=== PATIENT | male | born 1975 | race Caucasian/White ===

== ENCOUNTER 2017-07-19 10:39 | Emergency (ER) | payer BC ==
[~2017-07-19] VITALS: Ht 185.4 cm; Wt 105.0 kg
[2017-07-19 10:40] VITALS: BP 174/106; PULSE 65; RESP 18; TEMP 97.6; O2SAT 100
[2017-07-19] MEDS ORDERED: ONDANSETRON HCL 4 MG/2 ML VIAL IV PUSH ONE (12:00)
[2017-07-19] MEDS ORDERED: SODIUM CHLOR 0.9% 1000 ML INJ 1,000 ML IV ONE (12:00)
--- NOTE | 2017-07-19 12:03 | PD ---
HPI Chief Complaint: GI Complaint Time Seen by Provider: 11:59 Travel History International Travel<30 days: No Contact w/Intl Traveler<30days: No Traveled to known affect area: No History of Present Illness HPI 41 YO M presents to the ED for evaluation of 1 week history of generalized abdominal pain, nausea, vomiting, loose stools, low urine output. Onset gradual. Patient denies associated fever or chills. He thinks he may have had a single episode of streaky hematemesis. He denies melena, hematochezia, penile discharge. Denies recent antibiotic use. He states that his last panendoscopy was 1-1/2 years ago in [place]. He states that he has had "a lot of GI issues, including ulcers." He endorses history of kidney stones. He states that this pain is different than those episodes. The patient is here working. He denies drinking alcohol. Endorses smoking marijuana. He treated at home with pantoprazole with no improvement of his symptoms. PFSH Social History Tobacco Use: Yes Allergies-Medications (Allergen,Severity, Reaction): Coded Allergies: No Known Allergies (Unverified , 07/19/17) Reported Meds & Prescriptions Reported Meds & Active Scripts Active Promethazine (Promethazine HCl) 12.5 Mg Tab 12.5 Mg PO Q6H PRN Reported Effexor (Venlafaxine HCl) 75 Mg Tab 150 Mg PO DAILY Metformin (Metformin HCl) 500 Mg Tab 500 Mg PO BIDPC Review of Systems Except as stated in HPI: all other systems reviewed are Neg Physical Exam Narrative GENERAL: Well-nourished, well-developed breathless white male in no acute distress.. SKIN: Focused skin assessment warm/dry. HEAD: Normocephalic. EYES: No scleral icterus. No injection or drainage. NECK: Supple, trachea midline. No JVD or lymphadenopathy. CARDIOVASCULAR: Regular rate and rhythm without murmurs, gallops, or rubs. RESPIRATORY: Breath sounds layer and equal bilaterally. No accessory muscle use. GASTROINTESTINAL: Abdomen soft, non-tender, nondistended. Hypoactive bowel sounds. RECTAL EXAM: No masses or tenderness, stool is brown. Guaiac negative MUSCULOSKELETAL: No cyanosis, or edema. BACK: Nontender without obvious deformity. + Right-sided CVA tenderness. Data Data Last Documented VS Vital Signs Date Time Temp Pulse Resp B/P (MAP) Pulse Ox O2 Delivery O2 Flow Rate FiO2 07/19/17 13:25 98.0 64 17 108/59 (75) 98 Room Air Orders Orders Iv Access Insert/Monitor (07/19/17 11:59) Ondansetron Inj (Zofran Inj) (07/19/17 12:00) Sodium Chlor 0.9% 1000 Ml Inj (Ns 1000 M (07/19/17 12:00) Complete Blood Count With Diff (07/19/17 12:25) Comprehensive Metabolic Panel (07/19/17 12:25) Lipase (07/19/17 12:25) Lactic Acid (07/19/17 12:25) Prothrombin Time / Inr (Pt) (07/19/17 12:25) Act Partial Throm Time (Ptt) (07/19/17 12:25) Urinalysis - C+S If Indicated (07/19/17 12:25) Ct Abd/Pel W Iv Contrast(Rout) (07/19/17 12:25) Ecg Monitoring (07/19/17 12:25) Oximetry (07/19/17 12:25) Morphine Inj (Morphine Inj) (07/19/17 12:30) Sodium Chloride 0.9% Flush (Ns Flush) (07/19/17 12:30) Iohexol 350 Inj (Omnipaque 350 Inj) (07/19/17 12:53) Ed Discharge Order (07/19/17 14:22) Labs Laboratory Tests Test 07/19/17 12:30 07/19/17 13:25 White Blood Count 16.7 TH/MM3 Red Blood Count 5.45 MIL/MM3 Hemoglobin 15.5 GM/DL Hematocrit 47.1 % Mean Corpuscular Volume 86.4 FL Mean Corpuscular Hemoglobin 28.4 PG Mean Corpuscular Hemoglobin Concent 32.8 % Red Cell Distribution Width 13.4 % Platelet Count 321 TH/MM3 Mean Platelet Volume 7.8 FL Neutrophils (%) (Auto) 88.7 % Lymphocytes (%) (Auto) 6.0 % Monocytes (%) (Auto) 4.1 % Eosinophils (%) (Auto) 0.9 % Basophils (%) (Auto) 0.3 % Neutrophils # (Auto) 14.8 TH/MM3 Lymphocytes # (Auto) 1.0 TH/MM3 Monocytes # (Auto) 0.7 TH/MM3 Eosinophils # (Auto) 0.1 TH/MM3 Basophils # (Auto) 0.1 TH/MM3 CBC Comment DIFF FINAL Differential Comment Prothrombin Time 10.7 SEC Prothromb Time International Ratio 1.0 RATIO Activated Partial Thromboplast Time 29.9 SEC Blood Urea Nitrogen 9 MG/DL Creatinine 0.82 MG/DL Random Glucose 131 MG/DL Total Protein 7.5 GM/DL Albumin 4.0 GM/DL Calcium Level 9.4 MG/DL Alkaline Phosphatase 113 U/L Aspartate Amino Transf (AST/SGOT) 25 U/L Alanine Aminotransferase (ALT/SGPT) 23 U/L Total Bilirubin 0.7 MG/DL Sodium Level 138 MEQ/L Potassium Level 4.0 MEQ/L Chloride Level 105 MEQ/L Carbon Dioxide Level 25.8 MEQ/L Anion Gap 7 MEQ/L Estimat Glomerular Filtration Rate 103 ML/MIN Lactic Acid Level 1.5 mmol/L Lipase 112 U/L Urine Color LIGHT-YELLOW Urine Turbidity CLEAR Urine pH 7.0 Urine Specific Ellis 1.029 Urine Protein NEG mg/dL Urine Glucose (UA) NEG mg/dL Urine Ketones 10 mg/dL Urine Occult Blood MOD Urine Nitrite NEG Urine Bilirubin NEG Urine Urobilinogen LESS THAN 2.0 MG/DL Urine Leukocyte Esterase NEG Urine RBC 17 /hpf Urine WBC LESS THAN 1 /hpf Microscopic Urinalysis Comment CULT NOT INDICATED MDM Medical Decision Making Medical Screen Exam Complete: Yes Emergency Medical Condition: Yes Differential Diagnosis Gastroenteritis versus PUD versus GERD versus diverticulitis versus bowel obstruction versus nephroureterolithiasis versus GI bleed versus cannabinol hyperemesis versus other Narrative Course 41 YO M presents to the ED for evaluation of 1 week history of generalized abdominal pain, nausea, vomiting, loose stools, low urine output. Onset gradual. Patient denies associated fever or chills. He thinks he may have had a single episode of streaky hematemesis. He denies melena, hematochezia, penile discharge. He states that his last panendoscopy was 1-1/2 years ago in [place]. He states that he has had "a lot of GI issues, including ulcers." Vitals reviewed. Patient is hypertensive on presentation but this resolves in the exam room. He is retching and restless. Abdominal exam is unremarkable. Positive right-sided CVA tenderness. Guaiac negative on rectal exam. IV was established. Patient was administered 4 mg morphine, 4 mg Zofran, 1 L normal saline IV. CBC: WBC 16.7 CMP: Unremarkable INR: 1.0. Lactic acid 1.5. Lipase 112 UA: no culture indicated CT abdomen and pelvis: No acute intra-abdominal pathology to explain the patient 's pain per radiology read. Incidental 11 mm lesion of the liver noted. On recheck the patient reports improvement of his pain and nausea. I discussed the results of the workup with the patient. He states that he already knows about the liver lesion and is being followed by his PCP. He was provided a copy of his CT results and instructed to follow-up when he returns home to [place]. I think this is gastroenteritis. Patient was provided prescription for a few doses of Phenergan, instructed to eat a bland diet, return for worsening symptoms. He indicated understanding of the instructions and is agreeable to the care plan. He is stable and discharged home. [facility] Point of Care Internal Pos. & Neg. Controls: Passed Fecal Specimen Occult Blood: Negative Diagnosis Primary Impression: Gastroenteritis Additional Impression: Lesion of liver Referrals: Utilization Management Nurse Primary Care Physician Patient Instructions: Diet for Stomach Ulcers and Gastritis (ED), Gastroenteritis (ED), General Instructions Additional Instructions: Rest, hydrate. Return to normal, gentle activities as tolerated. Phenergan as prescribed, as needed for episodes of vomiting. Eat a bland diet for the next few days and gradually reintroduce new foods. Follow-up with your senior research consultant or primary care upon return home. Return to the ED for worsening symptoms or any urgent or emergent medical condition. Med/Other Pt SpecificInfo: Prescription(s) given Scripts Promethazine (Promethazine) 12.5 Mg Tab 12.5 MG PO Q6H Y for NAUSEA OR VOMITING, #6 TAB 0 Refills Prov: Katelin Vázquez DO 07/19/17 Disposition: 01 DISCHARGE HOME Condition: Stable Karen Campos Jul 19, 2017 12:03
[2017-07-19] MEDS ORDERED: METF500T PO (12:07)
[2017-07-19] MEDS ORDERED: VENL75TA PO (12:07)
[2017-07-19 12:27] VITALS: RESP 16; O2SAT 99
[2017-07-19] MEDS ORDERED: SODIUM CHLORIDE 0.9% FLUSH 10 ML FLUSH IV FLUSH PRN (12:30)
[2017-07-19] MEDS ORDERED: MORPHINE SULFATE 4 MG/ML INJ IV PUSH ONE (12:30)
[2017-07-19] MEDS ORDERED: IOHEXOL 350 MG/ML 10 ML VIAL (for RAD DIAG) IVCONTRAST ONE (12:53)
[2017-07-19 13:00] LABS: AUTOMATED NEUTROPHIL # 14.8 TH/MM3 (1.8-7.7); BASOPHIL # 0.1 TH/MM3 (0-0.2); BASOPHIL % 0.3 % (0.0-2.0); EOSINOPHIL # 0.1 TH/MM3 (0-0.4); EOSINOPHIL % 0.9 % (0.0-4.0); HEMATOCRIT 47.1 % (39.0-51.0); HEMO FLAGS DIFF FINAL; MEAN CELL VOLUME 86.4 FL (80.0-100.0); MEAN CORPUSCULAR HEMOGLOBIN 28.4 PG (27.0-34.0); MEAN CORPUSCULAR HGB CONC 32.8 % (32.0-36.0); MONO % 4.1 % (0.0-8.0); NEUT % 88.7 % (16.0-70.0); PLATELET COUNT 321 TH/MM3 (150-450); RED BLOOD COUNT 5.45 MIL/MM3 (4.50-5.90); RED CELL DISTRIBUTION WIDTH 13.4 % (11.6-17.2); WHITE BLOOD COUNT 16.7 TH/MM3 (4.0-11.0)
--- NOTE | 2017-07-19 13:05 | RADRPT ---
EXAM DATE/TIME: 07/19/2017 12:41 [facility] COMPARISON: No previous studies available for comparison. INDICATIONS : Generalized abdominal pain, vomiting. IV CONTRAST: 97 cc Omnipaque 350 (iohexol) IV ORAL CONTRAST: No oral contrast ingested. RADIATION DOSE: 9.36 CTDIvol (mGy) MEDICAL HISTORY : Diabetes SURGICAL HISTORY : None. ENCOUNTER: Initial ACUITY: 1 day PAIN SCALE: 5/10 LOCATION: abdomen TECHNIQUE: Volumetric scanning of the abdomen and pelvis was performed. Using automated exposure control and ad justment of the mA and/or kV according to patient size, radiation dose was kept as low as reasonably achievable to obtain optimal diagnostic quality images. DICOM format image data is available electro nically for review and comparison. FINDINGS: LOWER LUNGS: The visualized lower lungs are clear. LIVER: The liver is diffusely low in attenuation. An 11 mm low attenuation lesion is seen involving segment 6. No ductal dilatation. Portal vein is patent. Gallbladder is unremarkable. SPLEEN: Normal size without lesion. PANCREAS: Within normal limits. KIDNEYS: Normal in size and shape. There is no mass, stone or hydronephrosis. ADRENAL GLANDS: Within normal limits. VASCULAR: There is no aortic aneurysm. BOWEL/MESENTERY: The stomach, small bowel, and colon demonstrate no acute abnormality. There is no free intraperitone al air or fluid. ABDOMINAL WALL: Within normal limits. RETROPERITONEUM: There is no lymphadenopathy. BLADDER: No wall thickening or mass. REPRODUCTIVE: Within normal limits. INGUINAL: There is no lymphadenopathy or hernia. MUSCULOSKELETAL: Within normal limits for patient age. CONCLUSION: 1. No acute abnormality to explain the patient's pain. 2. Hepatic steatosis. 3. 11 mm low-density lesion involving segment 6 of the liver. This is nonspecific in its CT appearanc e. This is peripheral enough within the liver that sonographic evaluation should be able to further c haracterize this lesion. If this is unsuccessful MRI would be needed. David Wray Jr., MD on July 19, 2017 at 12:59 Board Certified Radiologist. This report was verified electronically.
[2017-07-19 13:11] LABS: APTT (PATIENT) 29.9 SEC (24.3-30.1); PROTHROMBIN TIME - PATIENT 10.7 SEC (9.8-11.6)
[2017-07-19 13:17] LABS: ALT (GPT) 23 U/L (12-78); ANION GAP 7 MEQ/L (5-15); AST (GOT) 25 U/L (15-37); BICARBONATE 25.8 MEQ/L (21.0-32.0); BLOOD UREA NITROGEN 9 MG/DL (7-18); CHLORIDE 105 MEQ/L (98-107); GLOMERULAR FILTRATION RATE 103 ML/MIN (>89); SODIUM (NA) 138 MEQ/L (136-145)
[2017-07-19 13:19] LABS: ALKALINE PHOSPHATASE 113 U/L (45-117); TOTAL BILIRUBIN ADULT 0.7 MG/DL (0.2-1.0)
[2017-07-19 13:25] VITALS: BP 108/59; PULSE 64; RESP 17; TEMP 98; O2SAT 98
[2017-07-19] MEDS ORDERED: PROM12.54 PO (14:04)
[2017-07-19 14:11] LABS: BLOOD, URINE MOD (NEG); COMMENT (UR) CULT NOT INDICATED; CULTURE IF INDICATED CULT NOT INDICATED; GLUCOSE,URINE NEG (NEG); KETONE, URINE 10 mg/dL (NEG); NITRITE,URINE NEG (NEG); URINE COLOR LIGHT-YELLOW (YELLW/STRAW)
[2017-07-19 14:26] VITALS: BP 130/77; TEMP 97.8
== END 2017-07-19 14:30 | disposition home or self-care (01) ==
LOC: NEPD 10:39
DX: K52.9 Noninfective gastroenteritis and colitis, unspecified (principal); K76.9 Liver disease, unspecified; F12.90 Cannabis use, unspecified, uncomplicated
CPT/HCPCS: 74177; 80053; 81001; 83605; 83690; 85025; 85610; 85730; 96361; 96374; 96375; 99285; J2270; J2405; J7030; Q9967